=== PATIENT | female | born 1980 | race Two or more races ===

== ENCOUNTER → 2023-12-28 | Emergency (ER) | payer OTHER ==
[~2023-12-28] VITALS: Ht 167.6 cm; Wt 81.6 kg
[~2023-12-28] MED LIST: IBUPROFEN 400 MG TABLET ONE
[2023-12-28 21:55] VITALS: BP 165/75; TEMP 98.1; O2SAT 98
[2023-12-28] MEDS: IBUPROFEN 400 MG TABLET PO ONE (22:02)
== END | disposition home or self-care (01) ==
LOC: ER 21:23
DX: S43.401A Unspecified sprain of right shoulder joint, initial encounter (principal); S39.012A Strain of muscle, fascia and tendon of lower back, initial encounter; M54.2 Cervicalgia; V89.0XXA Person injured in unspecified motor-vehicle accident, nontraffic, initial encounter; Y93.89 Activity, other specified; Y92.89 Other specified places as the place of occurrence of the external cause; Y99.8 Other external cause status
CPT/HCPCS: 72125-TC; 72131-TC; 73030-TC